=== PATIENT | female | born 1965 | race Native Hawaiian/Other Pacific Islander ===

== ENCOUNTER 2019-05-20 05:35 | Emergency (ER) | payer OTHER ==
[~2019-05-20] VITALS: Ht 172.7 cm; Wt 145.2 kg
[2019-05-20 05:48] VITALS: TEMP 97
[2019-05-20 06:18] LABS: PLATELET COUNT 383 K/uL (152-353)
[2019-05-20 06:24] LABS: POTASSIUM 4.3 mmol/L (3.6-5.2); SODIUM 141 mmol/L (136-145)
[2019-05-20 09:15] VITALS: BP 141/84
== END 2019-05-20 09:38 | disposition home or self-care (01) ==
LOC: ED 05:35
PROVIDERS: Emergency Medicine
DX: K80.20 Calculus of gallbladder without cholecystitis without obstruction (principal)
CPT/HCPCS: 36415; 80053; 81000; 82150; 83690; 83735; 84484; 85027; 86318; 93005; 96360; 96375; 99284; J1885; J2405; J3490

== ENCOUNTER 2019-05-21 07:11 | Emergency (ER) | payer OTHER ==
[~2019-05-21] VITALS: Ht 172.7 cm; Wt 145.2 kg
[2019-05-21 07:16] VITALS: TEMP 97.6
[2019-05-21 07:58] LABS: PLATELET COUNT 380 K/uL (152-353)
[2019-05-21 08:04] LABS: POTASSIUM 4.1 mmol/L (3.6-5.2)
[2019-05-21 11:24] VITALS: BP 154/80
== END 2019-05-21 11:30 | disposition short-term general hospital (02) ==
LOC: ED 07:11
PROVIDERS: Student in an Organized Health Care Education/Training Program
DX: K81.0 Acute cholecystitis (principal)
CPT/HCPCS: 36415; 80053; 82150; 83605; 83690; 83735; 85027; 87040; 96360; 96361; 96365; 96375; 96376; 99284; J1170; J2175; J2405; J2543; J3490

== ENCOUNTER 2019-05-21 11:30 | Outpatient (CLI) | payer OTHER | END 2019-05-21 11:48 | disposition short-term general hospital (02) | LOC: AMB 11:30 | DX: R10.11 Right upper quadrant pain (principal); R11.10 Vomiting, unspecified | CPT/HCPCS: A0425; A0429 ==